=== PATIENT | female | born 1960 | race Two or more races ===

== ENCOUNTER 2018-07-05 07:28 | Day surgery (SDC) | payer OTHER ==
[~2018-07-05 07:28] MED LIST: ATROVENT HFA12.9 GM IH; FLOVENT DISKU100 MCG IH; IPRATROPIU0.2 MG/1 M IH; PROAIR HFA8.5 GM IH; SINGULAIR10 MG PO; ZERTEC PO; [UNRECOGNIZED DRUG - OTHER] PO
[2018-07-05] MEDS ORDERED: ULTRAM50 MG PO (13:19)
[2018-07-05] MEDS ORDERED: DOXYCYCLINE HY100 MG PO (13:20)
== END 2018-07-05 16:00 | disposition home or self-care (01) ==
LOC: CIR.AMB 07:28
DX: D21.6 Benign neoplasm of connective and other soft tissue of trunk, unspecified (principal)